=== PATIENT | male | born 1945 | race Hispanic/Latino ===

== ENCOUNTER 2018-09-17 18:45 | Inpatient (IN) | payer MEDICARE ==
[2018-09-17] MEDS ORDERED: Sodium Chloride 0.9% 1,000 ML IV ONE (19:13)
[2018-09-17] MEDS ORDERED: Sodium Chloride 0.9% 500 ML IV ONE (19:13)
--- NOTE | 2018-09-17 19:26 | C.PDOC ---
History Of Present Illness 73 year old male presents after he tripped and fell at home today and was unable to get up. Denies LOC. Chief Complaint (Nursing): Lower Extremity Problem/Injury History Per: Patient History/Exam Limitations: no limitations Onset/Duration Of Symptoms: Hrs Current Symptoms Are (Timing): Still Present Recent travel outside of the [place]: No Past Medical History Reviewed: Historical Data, Nursing Documentation, Vital Signs Vital Signs: Last Vital Signs Temp 99.9 F H 09/17/18 19:16 Pulse 111 H 09/17/18 18:57 Resp 20 09/17/18 18:57 BP 155/77 H 09/17/18 18:57 Pulse Ox 92 L 09/17/18 18:57 Family History: States: Unknown Family Hx - Social History Hx Alcohol Use: No Hx Substance Use: No - Immunization History Hx Tetanus Toxoid Vaccination: No Hx Influenza Vaccination: No Hx Pneumococcal Vaccination: No Review Of Systems Constitutional: Negative for: Fever, Chills Cardiovascular: Negative for: Chest Pain, Palpitations Respiratory: Negative for: Cough, Shortness of Breath Gastrointestinal: Negative for: Nausea, Vomiting Neurological: Negative for: Weakness, Numbness, Other (LOC) Physical Exam - Physical Exam Appears: Non-toxic Skin: Warm, Dry Head: Atraumatic, Normacephalic Eye(s): bilateral: Normal Inspection Nose: Normal Oral Mucosa: Dry Neck: Normal, No Midline Cervical Tenderness, No Paracervical Tenderness, Supple Chest: Symmetrical, No Tenderness Cardiovascular: Rhythm Regular Respiratory: Normal Breath Sounds, No Rales, No Rhonchi, No Wheezing Gastrointestinal/Abdominal: Soft, No Tenderness Back: No CVA Tenderness Extremity: Other (Markedly lower extremities with erythema, warm to touch) Neurological/Psych: Oriented x3, Normal Speech ED Course And Treatment - Laboratory Results Result Diagrams: 09/17/18 19:15 09/17/18 19:15 ECG: Interpreted By Me, Viewed By Me ECG Rhythm: Sinus Rhythm ECG Interpretation: No Acute Changes Interpretation Of ECG: NSR, noacute changes, normal tracings. Rate From EC O2 Sat by Pulse Oximetry: 92 (Room air) Pulse Ox Interpretation: Abnormal Progress Note: EKG, blood work, CT head, and urinalysis ordered. IV fluids and rocephin administered. Disposition Discussed With : Ephraim Avalos Doctor Will See Patient In The: Hospital Counseled Patient/Family Regarding: Diagnosis - Disposition Disposition: HOSPITALIZED Disposition Time: 23:54 Condition: STABLE Forms: [facility] (Z[place]ian) - POA Present On Arrival: None - Clinical Impression Clinical Impression: Syncope, Cellulitis - Scribe Statement The provider has reviewed the documentation as recorded by the Scribe Arpit Castillo All medical record entries made by the Aaronibcayla were at my direction and personally dictated by me. I have reviewed the chart and agree that the record accurately reflects my personal performance of the history, physical exam, medical decision making, and the department course for this patient. I have also personally directed, reviewed, and agree with the discharge instructions and disposition.
[2018-09-17] MEDS ORDERED: cefTRIAXone IV 1 gm in Dextros 50 ML IVPB ONE (19:27)
[2018-09-17 19:48] LABS: BASO % 0.5 % (0.0-2.0); EOS % 0.2 % (0.0-4.0); HEMOGLOBIN 14.8 g/dL (12.0-18.0); LYMPH # 0.9 K/uL (1.0-4.3); LYMPH % 9.9 % (20.0-40.0); MEAN CELL VOLUME 89.9 fL (80.0-94.0); MEAN CORPUSCULAR HEMOGLOBIN 31.5 pg (27.0-31.0); MEAN PLATELET VOLUME 7.1 fL (7.2-11.7); MONO # 0.7 K/uL (0.0-0.8); MONO % 8.3 % (0.0-10.0); NEUT # 7.1 K/uL (1.8-7.0); NEUT % 81.1 % (50.0-75.0); NRBC % 0.1 % (0.0-2.0); PLATELET COUNT 199 K/uL (130-400); RBC 4.69 Mil/uL (4.40-5.90); WHITE BLOOD COUNT 8.8 K/uL (4.8-10.8)
[2018-09-17] MEDS ORDERED: Sodium Chloride 0.9% 1,000 ML ONE (19:51)
[2018-09-17 20:03] LABS: ALB/GLOB RATIO 1.3 (1.0-2.1); ALBUMIN 4.4 g/dL (3.5-5.0); ALT/SGPT 18 U/L (21-72); AST/SGOT 45 U/L (17-59); BLOOD UREA NITROGEN 11 mg/dL (9-20); CALCIUM 8.7 mg/dl (8.6-10.4); GFR NON-AFRICAN AMERICAN > 60
[2018-09-17 20:07] LABS: LYMPHOCYTE 9 % (20-40); MONOCYTE 10 % (0-10); NEUTROPHIL 81 % (50-75); PLATELET ESTIMATE NORMAL (NORMAL); TOTAL CELLS COUNTED 100
[2018-09-17] MEDS ORDERED: Iohexol 300 100 ML IJ ONE (20:48)
[2018-09-17 21:06] LABS: ABG ALLEN TEST YES; ARTERIAL BLOOD GAS HCO3 26.2 mmol/L (21-28); ARTERIAL BLOOD GAS HEMOGLOBIN 13.1 g/dL (11.7-17.4); ARTERIAL BLOOD GAS PCO2 29 mm/Hg (35-45); ARTERIAL BLOOD GAS PH 7.52 (7.35-7.45); ARTERIAL BLOOD GAS PO2 93 mm/Hg (80-100); ARTERIAL BLOOD GAS TCO2 24.6 mmol/L (22-28)
--- NOTE | 2018-09-18 00:56 | CP.PCM.HP ---
<Whitney Bean - Last Filed: 09/18/18 03:00> History of Present Illness - History of Present Illness History of Present Illness: Medicine Admission History and Physical - Night Float CC: s/p fall HPI: 73 y/o male who denies PMHx presents to the ED from EMS s/p fall at home. Patient said he was on the ground for about 12 hours before EMS was called and was sent to the hospital. This morning, he was going to his bedroom, tripped, tried to catch himself by holding a doorknob and fell. His feet hit the ground, but not his head. His right middle finger got bruised during the fall; he used his right hand to hold the doorknob. Patient denied LOC or hitting his head. Patient was on the ground for a long time because his brother at home cannot physically pick him up. While he was on the ground, his brother, who he lives with, brought him food. Since he was on the ground for a long time and cannot get up, he urinated on the floor because he really needed to go. Patient only complains of pain on both feet, but his feet have always been hurting. Patient endorses trouble ambulating because of foot pain. His shins have had chronic discoloration for a long time; patient does not recall for how long. Patient also endorses LBP since he is sedentary opposed to trauma. Denies fever, chills, sweats, nausea, vomiting, diarrhea, abdominal pain. ROS: as per HPI PMHx: denies PSHx: adenoids and tonsil removal childhood FHx: sister with DM SocHx: denies tobacco, EtOH and illicit drugs now and in the past. Lives with brother's family - brother's and kids as well. Limited in ADLs. Brother assists with ADLs. Meds: None. Used to be on "water pill" (HCTZ)? Patient states he stopped it. Unclear why. All: NKDA Present on Admission - Present on Admission Any Indicators Present on Admission: Yes Past Patient History - Past Social History Smoking Status: Never Smoked - ENDOCRINE/METABOLIC Hx Diabetes Mellitus Type 2: Yes - PSYCHIATRIC Hx Substance Use: No Meds Allergies/Adverse Reactions: Allergies Allergy/AdvReac Type Severity Reaction Status Date / Time No Known Allergies Allergy Verified 09/17/18 19:02 Physical Exam - Constitutional Appears: Well - Head Exam Head Exam: ATRAUMATIC, NORMAL INSPECTION, NORMOCEPHALIC - Eye Exam Eye Exam: EOMI, Normal appearance Pupil Exam: NORMAL ACCOMODATION - ENT Exam ENT Exam: Mucous Membranes Dry - Neck Exam Neck exam: Positive for: Normal Inspection. Negative for: Lymphadenopathy, Tenderness - Respiratory Exam Respiratory Exam: Clear to Auscultation Bilateral, NORMAL BREATHING PATTERN - Cardiovascular Exam Cardiovascular Exam: REGULAR RHYTHM - GI/Abdominal Exam GI & Abdominal Exam: Normal Bowel Sounds, Soft - Extremities Exam Extremities exam: Positive for: calf tenderness Additional comments: bilateral: chronic erythematous LE below knees that do not cherelle or change color with gravity. TTP. 2+ pitting edema, desquamation of feet, hallus valgus, severe thickening and yellowing of toenails - Back Exam Back exam: absent: paraspinal tenderness, vertebral tenderness Additional comments: no vertebral cervical, thoracic or lumbar tenderness - Neurological Exam Neurological exam: Alert, Oriented x3 - Psychiatric Exam Psychiatric exam: Normal Affect, Normal Mood - Skin Skin Exam: Dry, Intact, Normal Color, Warm Additional comments: legs were not warm to touch compared to other parts of body Results - Vital Signs Recent Vital Signs: Last Vital Signs Temp 99 F 09/17/18 23:41 Pulse 95 H 09/17/18 23:41 Resp 16 09/17/18 23:41 BP 140/90 09/17/18 23:41 Pulse Ox 92 L 09/17/18 23:57 - Labs Result Diagrams: 09/17/18 19:15 09/17/18 19:15 Labs: Laboratory Results - last 24 hr 09/17/18 09/17/18 09/17/18 19:15 19:15 19:15 WBC 8.8 RBC 4.69 Hgb 14.8 Hct 42.2 MCV 89.9 MCH 31.5 H MCHC 35.0 RDW 13.0 Plt Count 199 MPV 7.1 L Neut % (Auto) 81.1 H Lymph % (Auto) 9.9 L Brule % (Auto) 8.3 Eos % (Auto) 0.2 Baso % (Auto) 0.5 Neut # (Auto) 7.1 H Lymph # (Auto) 0.9 L Brule # (Auto) 0.7 Eos # (Auto) 0.0 Baso # (Auto) 0.0 Neutrophils % (Manual) 81 H Lymphocytes % (Manual) 9 L Monocytes % (Manual) 10 Platelet Estimate Normal D-Dimer, Quantitative 605 H Puncture Site pCO2 pO2 HCO3 ABG pH ABG Total CO2 ABG O2 Saturation ABG Base Excess ABG Hemoglobin ABG Carboxyhemoglobin POC ABG HHb (Measured) ABG Methemoglobin Isaac Test Hgb O2 Saturation Sodium 137 Potassium 4.3 Chloride 100 Carbon Dioxide 26 Anion Gap 16 BUN 11 Creatinine 0.8 Est GFR ( Amer) > 60 Est GFR (Non-Af Amer) > 60 Random Glucose 132 H Lactic Acid Calcium 8.7 Total Bilirubin 1.6 H AST 45 ALT 18 L Alkaline Phosphatase 93 Total Protein 7.8 Albumin 4.4 Globulin 3.4 Albumin/Globulin Ratio 1.3 09/17/18 09/17/18 20:41 20:50 WBC RBC Hgb Hct MCV MCH MCHC RDW Plt Count MPV Neut % (Auto) Lymph % (Auto) Brule % (Auto) Eos % (Auto) Baso % (Auto) Neut # (Auto) Lymph # (Auto) Brule # (Auto) Eos # (Auto) Baso # (Auto) Neutrophils % (Manual) Lymphocytes % (Manual) Monocytes % (Manual) Platelet Estimate D-Dimer, Quantitative Puncture Site Rb pCO2 29 L pO2 93 HCO3 26.2 ABG pH 7.52 H ABG Total CO2 24.6 ABG O2 Saturation 99.0 H ABG Base Excess 1.7 ABG Hemoglobin 13.1 ABG Carboxyhemoglobin 1.8 H POC ABG HHb (Measured) 1.0 ABG Methemoglobin 2.0 Isaac Test Yes Hgb O2 Saturation 95.2 Sodium Potassium Chloride Carbon Dioxide Anion Gap BUN Creatinine Est GFR ( Amer) Est GFR (Non-Af Amer) Random Glucose Lactic Acid 2.3 H Calcium Total Bilirubin AST ALT Alkaline Phosphatase Total Protein Albumin Globulin Albumin/Globulin Ratio Assessment & Plan - Assessment and Plan (Free Text) Assessment: 73 y/o male who denies PMHx presents to the ED from EMS s/p fall at home. s/p fall -likely 2/2 chronic b/l LE weakness, denies hitting head and denies LOC -CT head, CXR, and CTAP formal read pending -CPK pending -UA pending - check for myoglobinuria -PT/OT b/l LE edema and chronic skin changes -likely 2/2 peripheral vascular disease vs. cellulitis -s/p ceftriaxone 1g x 1; will hold off on abs due to no leukocytosis and patient afebrile -venous doppler r/o PE ordered - pending results -ddimer -podiatry consulted, appreciate recs Hx of CHF? -patient w/o other medical documentation from our EMR. Was on "water pills" in the past -monitor for fluid overload via lung exam; patient receiving 100cc/h PPX DVT: heparin 5000u sq GI: not indicated Diet: HHD case d/w Dr. Bailey Bean PGY1 <Ephraim Avalos - Last Filed: 09/18/18 06:51> Results - Vital Signs Recent Vital Signs: Last Vital Signs Temp 98.9 F 09/18/18 05:56 Pulse 89 09/18/18 05:56 Resp 22 09/18/18 05:56 BP 94/58 L 09/18/18 05:56 Pulse Ox 98 09/18/18 05:56 - Labs Result Diagrams: 09/18/18 05:39 09/18/18 05:39 Labs: Laboratory Results - last 24 hr 09/17/18 09/17/18 09/17/18 19:15 19:15 19:15 WBC 8.8 RBC 4.69 Hgb 14.8 Hct 42.2 MCV 89.9 MCH 31.5 H MCHC 35.0 RDW 13.0 Plt Count 199 MPV 7.1 L Neut % (Auto) 81.1 H Lymph % (Auto) 9.9 L Brule % (Auto) 8.3 Eos % (Auto) 0.2 Baso % (Auto) 0.5 Neut # (Auto) 7.1 H Lymph # (Auto) 0.9 L Brule # (Auto) 0.7 Eos # (Auto) 0.0 Baso # (Auto) 0.0 Neutrophils % (Manual) 81 H Lymphocytes % (Manual) 9 L Monocytes % (Manual) 10 Platelet Estimate Normal D-Dimer, Quantitative 605 H Puncture Site pCO2 pO2 HCO3 ABG pH ABG Total CO2 ABG O2 Saturation ABG Base Excess ABG Hemoglobin ABG Carboxyhemoglobin POC ABG HHb (Measured) ABG Methemoglobin Isaac Test VBG pH VBG pCO2 VBG HCO3 VBG Total CO2 VBG O2 Sat (Calc) VBG Base Excess VBG Potassium Hgb O2 Saturation Glucose Lactate Sodium 137 Potassium 4.3 Chloride 100 Carbon Dioxide 26 Anion Gap 16 BUN 11 Creatinine 0.8 Est GFR ( Amer) > 60 Est GFR (Non-Af Amer) > 60 Random Glucose 132 H Lactic Acid Calcium 8.7 Phosphorus Magnesium Total Bilirubin 1.6 H AST 45 ALT 18 L Alkaline Phosphatase 93 Total Protein 7.8 Albumin 4.4 Globulin 3.4 Albumin/Globulin Ratio 1.3 Venous Blood Potassium 09/17/18 09/17/18 09/18/18 20:41 20:50 05:39 WBC 7.3 RBC 4.16 L Hgb 13.2 Hct 38.0 MCV 91.5 MCH 31.7 H MCHC 34.7 RDW 12.8 Plt Count 170 MPV 6.9 L Neut % (Auto) 63.1 Lymph % (Auto) 21.8 Brule % (Auto) 12.6 H Eos % (Auto) 1.9 Baso % (Auto) 0.6 Neut # (Auto) 4.6 Lymph # (Auto) 1.6 Brule # (Auto) 0.9 H Eos # (Auto) 0.1 Baso # (Auto) 0.0 Neutrophils % (Manual) Lymphocytes % (Manual) Monocytes % (Manual) Platelet Estimate D-Dimer, Quantitative Puncture Site Rb pCO2 29 L pO2 93 HCO3 26.2 ABG pH 7.52 H ABG Total CO2 24.6 ABG O2 Saturation 99.0 H ABG Base Excess 1.7 ABG Hemoglobin 13.1 ABG Carboxyhemoglobin 1.8 H POC ABG HHb (Measured) 1.0 ABG Methemoglobin 2.0 Isaac Test Yes VBG pH VBG pCO2 VBG HCO3 VBG Total CO2 VBG O2 Sat (Calc) VBG Base Excess VBG Potassium Hgb O2 Saturation 95.2 Glucose Lactate Sodium Potassium Chloride Carbon Dioxide Anion Gap BUN Creatinine Est GFR ( Amer) Est GFR (Non-Af Amer) Random Glucose Lactic Acid 2.3 H Calcium Phosphorus Magnesium Total Bilirubin AST ALT Alkaline Phosphatase Total Protein Albumin Globulin Albumin/Globulin Ratio Venous Blood Potassium 09/18/18 09/18/18 09/18/18 05:39 05:39 05:40 WBC RBC Hgb Hct MCV MCH MCHC RDW Plt Count MPV Neut % (Auto) Lymph % (Auto) Brule % (Auto) Eos % (Auto) Baso % (Auto) Neut # (Auto) Lymph # (Auto) Brule # (Auto) Eos # (Auto) Baso # (Auto) Neutrophils % (Manual) Lymphocytes % (Manual) Monocytes % (Manual) Platelet Estimate D-Dimer, Quantitative Puncture Site pCO2 pO2 19 L HCO3 ABG pH ABG Total CO2 ABG O2 Saturation ABG Base Excess ABG Hemoglobin ABG Carboxyhemoglobin POC ABG HHb (Measured) ABG Methemoglobin Isaac Test VBG pH 7.39 VBG pCO2 49 VBG HCO3 25.9 VBG Total CO2 31.2 H VBG O2 Sat (Calc) 32.3 L VBG Base Excess 3.7 H VBG Potassium 3.5 L Hgb O2 Saturation Glucose 98 Lactate 1.3 Sodium 134 133.0 Potassium 3.6 Chloride 101 102.0 Carbon Dioxide 27 Anion Gap 10 BUN 11 Creatinine 0.9 Est GFR ( Amer) > 60 Est GFR (Non-Af Amer) > 60 Random Glucose 106 Lactic Acid Calcium 8.1 L Phosphorus 3.2 Magnesium 2.1 Total Bilirubin 2.0 H AST 65 H D ALT 22 Alkaline Phosphatase 80 Total Protein 6.5 Albumin 3.5 D Globulin 3.0 Albumin/Globulin Ratio 1.2 Venous Blood Potassium 3.5 L Assessment & Plan - Date & Time Date: 09/18/18 (I have seen and examined the patient. I agree with findings and plan of care as documented by Dr. Bean. Patient s/p fall. Check CT head. Fall precautions. PT/OT. Also with chronic venous stasis and subsequent skin changes. Consult to podiatry. Rocephin given in ED but no cellulitis noted. Will monitor for fever or leukocytosis. No increase in warmth in lower extremities. Lower extremity dopplers. Monitor for acute changes.) Time: 06:50 Attending/Attestation - Attestation I have personally seen and examined this patient.: Yes I have fully participated in the care of the patient.: Yes I have reviewed all pertinent clinical information: Yes
[2018-09-18 05:41] LABS: BASO % 0.6 % (0.0-2.0); EOS # 0.1 K/uL (0.0-0.7); EOS % 1.9 % (0.0-4.0); HEMOGLOBIN 13.2 g/dL (12.0-18.0); LYMPH # 1.6 K/uL (1.0-4.3); LYMPH % 21.8 % (20.0-40.0); MEAN CELL VOLUME 91.5 fL (80.0-94.0); MEAN CORPUSCULAR HEMOGLOBIN 31.7 pg (27.0-31.0); MEAN CORPUSCULAR HGB CONC 34.7 g/dL (33.0-37.0); MEAN PLATELET VOLUME 6.9 fL (7.2-11.7); MONO # 0.9 K/uL (0.0-0.8); MONO % 12.6 % (0.0-10.0); NEUT # 4.6 K/uL (1.8-7.0); NEUT % 63.1 % (50.0-75.0); RBC 4.16 Mil/uL (4.40-5.90); RED CELL DISTRIBUTION WIDTH 12.8 % (11.5-14.5); WHITE BLOOD COUNT 7.3 K/uL (4.8-10.8)
[2018-09-18 05:44] LABS: VENOUS BLOOD GAS BASE EXCESS 3.7 mmol/L (0.0-2.0); VENOUS BLOOD GAS PCO2 49 mmHg (40-60); VENOUS BLOOD GAS PO2 19 mm/Hg (30-55); VENOUS BLOOD PH 7.39 (7.32-7.43)
[2018-09-18 06:26] LABS: ALB/GLOB RATIO 1.2 (1.0-2.1); ALBUMIN 3.5 g/dL (3.5-5.0); ALT/SGPT 22 U/L (21-72); AST/SGOT 65 U/L (17-59); BLOOD UREA NITROGEN 11 mg/dL (9-20); CALCIUM 8.1 mg/dl (8.6-10.4); GFR NON-AFRICAN AMERICAN > 60
--- NOTE | 2018-09-18 09:35 | CT ---
Date of service: 09/17/2018 PROCEDURE: CT HEAD WITHOUT CONTRAST. HISTORY: seizure COMPARISON: None available. TECHNIQUE: Axial computed tomography images were obtained through the head/brain without intravenous contrast. Radiation dose: Total exam DLP = 1134.78 mGy-cm. This CT exam was performed using one or more of the following dose reduction techniques: Automated exposure control, adjustment of the mA and/or kV according to patient size, and/or use of iterative reconstruction technique. FINDINGS: HEMORRHAGE: No intracranial hemorrhage. BRAIN: Minor chronic periventricular white matter ischemic changes. Moderate generalized volume loss. The vascular calcifications both carotid siphons. With minimal calcification both vertebral arteries. VENTRICLES: No obstructive hydrocephalus. Incidental note made of a cavum septum pellucidum and vergae. CALVARIUM: Unremarkable. PARANASAL SINUSES: Unremarkable as visualized. No significant inflammatory changes. MASTOID AIR CELLS: Unremarkable as visualized. No inflammatory changes. OTHER FINDINGS: None. IMPRESSION: No acute intracranial hemorrhage. Minor chronic periventricular white matter ischemic changes. Moderate generalized volume loss.
--- NOTE | 2018-09-18 11:08 | CT ---
Date of service: 09/17/2018 PROCEDURE: CT Chest with contrast (Pulmonary Angiogram) HISTORY: Elevated the D-Dimer COMPARISON: The no prior study available for comparison however correlation made with chest radiograph dated 09/17/2018. TECHNIQUE: Axial computed tomography images were obtained of the chest in the pulmonary arterial phase of enhancement. Coronal and sagittal reformatted images were created and reviewed. Intravenous contrast dose: Radiation dose: Total exam DLP = 637.71 mGy-cm. This CT exam was performed using one or more of the following dose reduction techniques: Automated exposure control, adjustment of the mA and/or kV according to patient size, and/or use of iterative reconstruction technique. FINDINGS: PULMONARY ARTERIES: Unremarkable. No pulmonary embolism. Pulmonary trunk measures approximately 2.75 cm. AORTA: No acute findings. No thoracic aortic aneurysm. Ascending thoracic aorta measures approximately 3.25 cm and descending thoracic aorta measures approximately 2.5 cm. no aortic atherosclerotic calcification or mural plaque present. The the LUNGS: Mild passive/dependent type atelectasis seen in the right and to a lesser degree left lung bases. PLEURAL SPACES: Unremarkable. No effusion or pneumothorax. HEART: Unremarkable. No cardiomegaly. No significant pericardial effusion. LYMPH NODES: Few small nonspecific mediastinal lymph nodes. No significant hilar adenopathy. Trachea is midline and patent with no large central endoluminal lesions. There is a small hiatal hernia. BONES, CHEST WALL: Mild multilevel degenerative spondylosis of the thoracic spine. OTHER FINDINGS: Liver appears enlarged measuring nearly 19 cm in CC dimension.. 12.6 mm elliptical shaped calculus seen in the right renal pelvis region. IMPRESSION: Unremarkable CT pulmonary angiogram. No pulmonary embolus. Hepatomegaly. Nonobstructing calculus right renal pelvis.
--- NOTE | 2018-09-18 16:27 | RAD ---
Date of service: 09/18/2018 PROCEDURE: Radiographs of the Lumbar Spine. HISTORY: previous fall COMPARISON: No prior FINDINGS: BONES: No evidence of acute compression fractures no retropulsed fragments. Vertebral bodies exhibit normal stature. Vertebral bodies and facets normally aligned. DISC SPACES: Mild moderate multilevel degenerative spondylosis. Changes most notably affect the L5-S1 level with disc space narrowing, endplate eburnation with anterolateral as well as smaller posterior osteophyte formation and hypertrophic facet joint changes.. Similar but less severe changes seen at the remaining levels. OTHER FINDINGS: None. IMPRESSION: No acute fractures. Mild to moderate multilevel degenerative spondylosis most notably affecting the L5-S1 level.
--- NOTE | 2018-09-18 16:28 | RAD ---
PROCEDURE: Radiographs of the pelvis and bilateral hips HISTORY: prior hx of fall COMPARISON: None. FINDINGS: BONES: Pelvis: Unremarkable. Right hip:Unremarkable. Left hip:Unremarkable. JOINTS: Right hip: Unremarkable. Left hip: Unremarkable. Sacroiliac Joints: Unremarkable. Pubic symphysis: Unremarkable. SOFT TISSUES: Normal. OTHER FINDINGS: Mild degenerative spondylosis lumbosacral spine IMPRESSION: No evidence of acute displaced fracture nor dislocation
--- NOTE | 2018-09-18 17:26 | RAD ---
Date of service: 09/17/2018 HISTORY: Seizure COMPARISON: Comparison made with CTA chest dated 09/17/2017. FINDINGS: LUNGS: Minor bibasilar atelectasis PLEURA: No significant pleural effusion identified, no pneumothorax apparent. CARDIOVASCULAR: No aortic atherosclerotic calcification present.. Normal cardiac size. No pulmonary vascular congestion. OSSEOUS STRUCTURES: No significant abnormalities. VISUALIZED UPPER ABDOMEN: Normal. OTHER FINDINGS: None. IMPRESSION: Minor bibasilar atelectasis.
[2018-09-18 21:24] LABS: URINE BILIRUBIN NEGATIVE (NEGATIVE); URINE BLOOD 2+ (NEGATIVE); URINE CLARITY Clear (Clear); URINE COLOR Yellow (YELLOW); URINE GLUCOSE (UA) NORMAL (Normal); URINE LEUKOCYTE ESTERASE NEG Leu/uL (Negative); URINE PROTEIN NEGATIVE (NEGATIVE)
[2018-09-19 08:50] LABS: BASO % 0.8 % (0.0-2.0); EOS # 0.2 K/uL (0.0-0.7); EOS % 3.7 % (0.0-4.0); HEMOGLOBIN 13.7 g/dL (12.0-18.0); LYMPH # 1.3 K/uL (1.0-4.3); LYMPH % 21.7 % (20.0-40.0); MEAN CELL VOLUME 92.2 fL (80.0-94.0); MEAN CORPUSCULAR HEMOGLOBIN 31.8 pg (27.0-31.0); MEAN CORPUSCULAR HGB CONC 34.5 g/dL (33.0-37.0); MEAN PLATELET VOLUME 7.4 fL (7.2-11.7); MONO # 0.7 K/uL (0.0-0.8); MONO % 10.9 % (0.0-10.0); NEUT # 3.8 K/uL (1.8-7.0); NEUT % 62.9 % (50.0-75.0); RBC 4.29 Mil/uL (4.40-5.90); RED CELL DISTRIBUTION WIDTH 13.1 % (11.5-14.5)
[2018-09-19 09:16] LABS: ALB/GLOB RATIO 1.1 (1.0-2.1); ALBUMIN 3.4 g/dL (3.5-5.0); ALT/SGPT 23 U/L (21-72); AST/SGOT 56 U/L (17-59); BLOOD UREA NITROGEN 15 mg/dL (9-20); CALCIUM 7.8 mg/dl (8.6-10.4); GFR NON-AFRICAN AMERICAN > 60
[2018-09-19 10:22] LABS: FOLATE 10.2 ng/mL
--- NOTE | 2018-09-19 17:03 | CP.PCM.PN ---
Subjective - Date & Time of Evaluation Date of Evaluation: 09/19/18 Time of Evaluation: 12:00 - Subjective Subjective: PGY-1 Medicine Progress Note for Dr. Lopez's service Patient s/e at bedside. Offers 0 complaints. Denies fevers, chills, chest pain, sob, n/v, constipation or diarrhea, dysuria, and fecal incontinence. Objective - Vital Signs/Intake and Output Vital Signs (last 24 hours): Temp Pulse Resp BP Pulse Ox 97.9 F 77 20 104/61 93 L 09/19/18 15:00 09/19/18 15:00 09/19/18 15:00 09/19/18 15:00 09/19/18 15:00 Intake and Output: 09/19/18 09/19/18 06:59 18:59 Output Total 200 Balance -200 - Medications Medications: Current Medications Heparin Sodium (Porcine) (Heparin) 5,000 units SC Q12 [id number] Last Admin: 09/19/18 10:57 Dose: 5,000 units - Labs Labs: 09/19/18 08:42 09/19/18 08:42 - Constitutional Appears: Non-toxic, No Acute Distress - Head Exam Head Exam: NORMAL INSPECTION, NORMOCEPHALIC - Eye Exam Eye Exam: EOMI, Normal appearance. absent: Nystagmus, Scleral icterus - ENT Exam ENT Exam: Mucous Membranes Dry - Respiratory Exam Respiratory Exam: Clear to Ausculation Bilateral, NORMAL BREATHING PATTERN. absent: Rales, Rhonchi, Wheezes - Cardiovascular Exam Cardiovascular Exam: REGULAR RHYTHM, +S1, +S2 - GI/Abdominal Exam GI & Abdominal Exam: Soft, Normal Bowel Sounds. absent: Distended, Firm, Guarding, Tenderness - Extremities Exam Extremities Exam: Pedal Edema. absent: Calf Tenderness, Normal Inspection Additional comments: abnormal discoloration of b/l LE with dark pink color from below knee to above malleolus swelling noted in the same region mentioned above - Back Exam Back Exam: NORMAL INSPECTION - Neurological Exam Neurological Exam: Alert, Awake, Oriented x3 - Psychiatric Exam Psychiatric exam: Normal Affect, Normal Mood - Skin Skin Exam: Dry, Intact, Normal Color Assessment and Plan - Assessment and Plan (Free Text) Assessment: Patient is a 73 yo male w/ no known PMH admitted for fall at home. EDWIN negative. Unlikely infectious etiology in setting of afebrile and no leukocytosis. Multiple xrays were done which showed no fractures. Pending Echo and PT eval B/L leg edema with chronic skin changes Podiatry Consulted: Dr. Ita montenegro appreciated EDWIN negative, Infectious etiology unlikely in setting of no fever, leukocytosis Pending PT eval, Pending Echo venous stasis vs CHF; unknown etiology CT chest negative for PE D-Dimer elevated S/P Fall Hip/Lumbar xray negative for acute fractures GI ppx: not indicated DVT ppx: Hep 5000 units sc q8h, SCDs not tolerable PGY-1 Elysia Romo Medical Management discussed with Dr. Lopez
--- NOTE | 2018-09-19 18:28 | CP.PCM.CON ---
History of Present Illness - History of Present Illness History of Present Illness: Podiatry Consult Note for Dr. Vazquez: 73 year old male patient, who denies PMHx, seen and evaluated for b/l skin changes, admitted for fall. He states that his legs have looked wrinkled for a very long time and his primary care doctor told him to "keep an eye on them". He denies any weeping or drainage from his legs and states that they do not cause him any pain. He denies any other acute pedal complaints. Denies N/V/F/SOB/CP. PMHx: Denies ALL: NKDA Review of Systems - Constitutional Constitutional: As Per HPI Past Patient History - Past Medical History & Family History Past Medical History?: No - Past Social History Smoking Status: Unknown If Ever Smoked - ENDOCRINE/METABOLIC Hx Diabetes Mellitus Type 2: Yes - MUSCULOSKELETAL/RHEUMATOLOGICAL Hx Falls: Yes - PSYCHIATRIC Hx Substance Use: No - SURGICAL HISTORY Hx Tonsillectomy: Yes - ANESTHESIA Hx Anesthesia: No Hx Anesthesia Reactions: No Hx Malignant Hyperthermia: No Has any member of the family had a problem w/ anesthesia?: No Meds Allergies/Adverse Reactions: Allergies Allergy/AdvReac Type Severity Reaction Status Date / Time No Known Allergies Allergy Verified 09/17/18 19:02 - Medications Medications: Current Medications Heparin Sodium (Porcine) (Heparin) 5,000 units SC Q12 VENKATESH Last Admin: 09/19/18 10:57 Dose: 5,000 units Physical Exam - Constitutional Appears: Non-toxic, No Acute Distress - Extremities Exam Additional comments: Vascular: DP/PT 1/4, CFT < 3 seconds, TG warm to warm, no edema appreciated Ortho: No pain with palpation of b/l legs, MMT 4/5, no pain with calf compression. Hallux valgus deformity noted b/l with hammertoe deformity 2-5 bilaterally. Neuro: Gross and protective sensation intact Derm: Skin changes noted circumfrentially to b/l legs. Hyperpigmentation noted beginning at tibial tuberosity and extending down to ankle joint. No evidence of cellulitis, no open lesions, no clinical signs of infection. - Neurological Exam Neurological exam: Alert, Oriented x3 - Psychiatric Exam Psychiatric exam: Normal Affect, Normal Mood Results - Vital Signs Recent Vital Signs: Last Vital Signs Temp 97.9 F 09/19/18 15:00 Pulse 77 09/19/18 15:00 Resp 20 09/19/18 15:00 BP 104/61 09/19/18 15:00 Pulse Ox 93 L 09/19/18 15:00 - Labs Result Diagrams: 09/20/18 08:01 09/20/18 08:01 Labs: Laboratory Results - last 24 hr 09/18/18 09/18/18 09/18/18 16:51 20:10 21:09 WBC RBC Hgb Hct MCV MCH MCHC RDW Plt Count MPV Neut % (Auto) Lymph % (Auto) [place] % (Auto) Eos % (Auto) Baso % (Auto) Neut # (Auto) Lymph # (Auto) [place] # (Auto) Eos # (Auto) Baso # (Auto) Sodium Potassium Chloride Carbon Dioxide Anion Gap BUN Creatinine Est GFR ( Amer) Est GFR (Non-Af Amer) POC Glucose (mg/dL) 99 126 H Random Glucose Calcium Phosphorus Magnesium Total Bilirubin AST ALT Alkaline Phosphatase Total Creatine Kinase Total Protein Albumin Globulin Albumin/Globulin Ratio Vitamin B12 Folate Free T4 TSH 3rd Generation Urine Color Yellow Urine Clarity Clear Urine pH 6.0 Ur Specific [place] 1.015 Urine Protein Negative Urine Glucose (UA) Normal Urine Ketones Trace Urine Blood 2+ H Urine Nitrate Negative Urine Bilirubin Negative Urine Urobilinogen 2.0 Ur Leukocyte Esterase Neg Urine WBC (Auto) < 1 Urine RBC (Auto) 14 H RPR 09/19/18 09/19/18 09/19/18 06:13 08:42 08:42 WBC 6.0 RBC 4.29 L Hgb 13.7 Hct 39.6 MCV 92.2 MCH 31.8 H MCHC 34.5 RDW 13.1 Plt Count 174 MPV 7.4 Neut % (Auto) 62.9 Lymph % (Auto) 21.7 [place] % (Auto) 10.9 H Eos % (Auto) 3.7 Baso % (Auto) 0.8 Neut # (Auto) 3.8 Lymph # (Auto) 1.3 [place] # (Auto) 0.7 Eos # (Auto) 0.2 Baso # (Auto) 0.0 Sodium 136 Potassium 3.6 Chloride 104 Carbon Dioxide 26 Anion Gap 10 BUN 15 Creatinine 0.9 Est GFR ( Amer) > 60 Est GFR (Non-Af Amer) > 60 POC Glucose (mg/dL) 106 Random Glucose 99 Calcium 7.8 L Phosphorus 3.4 Magnesium 2.1 Total Bilirubin 1.3 AST 56 ALT 23 Alkaline Phosphatase 77 Total Creatine Kinase Total Protein 6.5 Albumin 3.4 L Globulin 3.1 Albumin/Globulin Ratio 1.1 Vitamin B12 195 L Folate 10.2 Free T4 TSH 3rd Generation 4.38 Urine Color Urine Clarity Urine pH Ur Specific [place] Urine Protein Urine Glucose (UA) Urine Ketones Urine Blood Urine Nitrate Urine Bilirubin Urine Urobilinogen Ur Leukocyte Esterase Urine WBC (Auto) Urine RBC (Auto) RPR 09/19/18 09/19/18 09/19/18 08:42 08:42 08:42 WBC RBC Hgb Hct MCV MCH MCHC RDW Plt Count MPV Neut % (Auto) Lymph % (Auto) [place] % (Auto) Eos % (Auto) Baso % (Auto) Neut # (Auto) Lymph # (Auto) [place] # (Auto) Eos # (Auto) Baso # (Auto) Sodium Potassium Chloride Carbon Dioxide Anion Gap BUN Creatinine Est GFR ( Amer) Est GFR (Non-Af Amer) POC Glucose (mg/dL) Random Glucose Calcium Phosphorus Magnesium Total Bilirubin AST ALT Alkaline Phosphatase Total Creatine Kinase 685 H Total Protein Albumin Globulin Albumin/Globulin Ratio Vitamin B12 Folate Free T4 1.14 TSH 3rd Generation Urine Color Urine Clarity Urine pH Ur Specific [place] Urine Protein Urine Glucose (UA) Urine Ketones Urine Blood Urine Nitrate Urine Bilirubin Urine Urobilinogen Ur Leukocyte Esterase Urine WBC (Auto) Urine RBC (Auto) RPR Nonreactive 09/19/18 09/19/18 11:40 16:56 WBC RBC Hgb Hct MCV MCH MCHC RDW Plt Count MPV Neut % (Auto) Lymph % (Auto) [place] % (Auto) Eos % (Auto) Baso % (Auto) Neut # (Auto) Lymph # (Auto) [place] # (Auto) Eos # (Auto) Baso # (Auto) Sodium Potassium Chloride Carbon Dioxide Anion Gap BUN Creatinine Est GFR ( Amer) Est GFR (Non-Af Amer) POC Glucose (mg/dL) 95 102 Random Glucose Calcium Phosphorus Magnesium Total Bilirubin AST ALT Alkaline Phosphatase Total Creatine Kinase Total Protein Albumin Globulin Albumin/Globulin Ratio Vitamin B12 Folate Free T4 TSH 3rd Generation Urine Color Urine Clarity Urine pH Ur Specific [place] Urine Protein Urine Glucose (UA) Urine Ketones Urine Blood Urine Nitrate Urine Bilirubin Urine Urobilinogen Ur Leukocyte Esterase Urine WBC (Auto) Urine RBC (Auto) RPR Assessment & Plan - Assessment and Plan (Free Text) Assessment: 73 year old male patient, who denies PMHx, seen and evaluated for b/l skin changes, admitted for fall. Plan: Patient seen and evaluated Discussed patient in detail with Dr. Vazquez Chart, labs, vitals reviewed; VSS, absent leukocytosis Ammonium lactate ordered; to be applied daily to b/l legs Podiatry to sign off at this time, please reconsult as needed Thank you for the consult and allowing us to partake in the care of this patient - Date & Time Date: 09/19/18 Time: 18:27
--- NOTE | 2018-09-20 07:46 | CP.PCM.PN ---
Subjective - Date & Time of Evaluation Date of Evaluation: 09/20/18 Time of Evaluation: 08:16 - Subjective Subjective: PGY-[address] Catherine Schmidt Patient seen and examined at bedside. No acute events overnight. Per PT note today, patient ambultaed 20 ft with RW - recommend ARNULFO. Awaiting echo. Podiatry on consult for bilateral lower extremity edema/skin changes - gave med recs and signed off case. Patient denies chest pain, headache, n/v/d/c, dizziness. Objective - Vital Signs/Intake and Output Vital Signs (last 24 hours): Temp Pulse Resp BP Pulse Ox 97.8 F 72 20 124/74 97 09/19/18 23:35 09/19/18 23:35 09/19/18 23:35 09/19/18 23:35 09/19/18 23:35 Intake and Output: 09/20/18 09/20/18 06:59 18:59 Intake Total 350 Output Total 900 Balance -550 - Medications Medications: Current Medications Heparin Sodium (Porcine) (Heparin) 5,000 units SC Q12 VENKATES[facility] Last Admin: 09/19/18 21:21 Dose: 5,000 units - Labs Labs: 09/19/18 08:42 09/19/18 08:42 - Constitutional Appears: Non-toxic, No Acute Distress - Head Exam Head Exam: ATRAUMATIC, NORMOCEPHALIC - Eye Exam Eye Exam: EOMI - ENT Exam ENT Exam: Mucous Membranes Moist - Respiratory Exam Respiratory Exam: Clear to Ausculation Bilateral, NORMAL BREATHING PATTERN. absent: Rhonchi, Wheezes - Cardiovascular Exam Cardiovascular Exam: REGULAR RHYTHM, +S1, +S2 - GI/Abdominal Exam GI & Abdominal Exam: Soft, Normal Bowel Sounds. absent: Tenderness - Extremities Exam Extremities Exam: Pedal Edema Additional comments: abnormal discoloration of b/l LE with dark pink color from below knee to above malleolus swelling noted in the same region mentioned above - Neurological Exam Neurological Exam: Alert, Awake, Oriented x3 - Psychiatric Exam Psychiatric exam: Normal Affect, Normal Mood - Skin Skin Exam: Dry, Intact Assessment and Plan - Assessment and Plan (Free Text) Assessment: Patient is a 73 yo male w/ no known PMH admitted for fall at home. EDWIN negative. Unlikely infectious etiology in setting of afebrile and no leukocytosis. Multiple x-rays were done which showed no fractures. Pending Echo. PT rec ARNULFO. Patient is a possible discharge tomorrow pending placement. B/L leg edema with chronic skin changes -Podiatry Consulted: Dr. Vazquez- lan appreciated --daily lac-hydrin applied topically to legs bilaterally. Podiatry signed off case. -EDWIN negative, Infectious etiology unlikely in setting of no fever, leukocytosis -PT - ambulated 20 ft w/ RW. Rec d/c to [facility]FO. -venous stasis vs CHF; unknown etiology -B/l LE dopplers 09/18 - Right: No evidence of deep or superficial vein thrombosis in those veins visualized of the right lower extremity. Normal valve function noted of the right side. Left: No evidence of deep or superficial vein thrombosis in those veins visualized of the left lower extremity. Normal valve function noted of the left side. S/P Fall -Hip/Lumbar xray 09/18 - negative for acute fractures -CT head 09/18 - No acute intracranial hemorrhage. Minor chronic periventricular white matter ischemic changes. Moderate generalized volume loss. -CT angio chest 09/18 - Unremarkable CT pulmonary angiogram. No pulmonary embolus. Hepatomegaly. Nonobstructing calculus right renal pelvis. -Mildly elevated CK (685) --Monitor renal function Ppx: -GI ppx: not indicated -DVT ppx: Hep 5000 units sc q8h, SCDs not tolerable Medical Management discussed with Dr. Catherine Stearns, PGY-1 Dispo: Podiatry saw patient - bilateral venous stasis changes, prescribed lac- hydrin lotion. PT rec'd ARNULFO. Spoke with case mgr Tamera regarding ARNULFO placement, will f/u for possible discharge tomorrow or once ARNULFO becomes available.
[2018-09-20 08:06] LABS: BASO % 0.6 % (0.0-2.0); EOS # 0.2 K/uL (0.0-0.7); EOS % 4.3 % (0.0-4.0); HEMOGLOBIN 14.1 g/dL (12.0-18.0); LYMPH % 18.3 % (20.0-40.0); MEAN CELL VOLUME 91.5 fL (80.0-94.0); MEAN CORPUSCULAR HEMOGLOBIN 31.8 pg (27.0-31.0); MEAN CORPUSCULAR HGB CONC 34.7 g/dL (33.0-37.0); MEAN PLATELET VOLUME 7.3 fL (7.2-11.7); MONO # 0.6 K/uL (0.0-0.8); MONO % 10.4 % (0.0-10.0); NEUT # 3.6 K/uL (1.8-7.0); NEUT % 66.4 % (50.0-75.0); RBC 4.44 Mil/uL (4.40-5.90); RED CELL DISTRIBUTION WIDTH 12.7 % (11.5-14.5); WHITE BLOOD COUNT 5.4 K/uL (4.8-10.8)
[2018-09-20 08:20] LABS: ALB/GLOB RATIO 1.1 (1.0-2.1); ALBUMIN 3.7 g/dL (3.5-5.0); ALT/SGPT 27 U/L (21-72); AST/SGOT 49 U/L (17-59); BLOOD UREA NITROGEN 17 mg/dL (9-20); CALCIUM 7.9 mg/dl (8.6-10.4); GFR NON-AFRICAN AMERICAN > 60
--- NOTE | 2018-09-20 11:39 | VASCLAB ---
Date of service: 09/18/2018 PROCEDURE: Lower Extremity Venous Duplex Exam. HISTORY: r/o DVT PRIORS: None. TECHNIQUE: Bilateral common femoral, femoral, popliteal and posterior tibial, peroneal and great saphenous veins were evaluated. Flow was assessed with color Doppler, compressibility, assessment of phasic flow and augmentation response. Report prepared by Mary Tello S FINDINGS: RIGHT: 1. Common Femoral Vein: 1.1. Compressibility - Fully compressible: Thrombus - None : Flow - Phasic: Augmentation -Normal: Reflux - None. 2. Femoral Vein: 2.1. Compressibility - Fully compressible: Thrombus - None : Flow - Phasic: Augmentation -Normal: Reflux - None. 3. Popliteal Vein: 3.1. Compressibility - Fully compressible: Thrombus - None : Flow - Phasic: Augmentation -Normal: Reflux - None. 4. Posterior Tibial Vein: 4.1. Compressibility - N/A: Thrombus - N/A: Flow - N/A: Augmentation -N/A: Reflux - N/A. 5. Peroneal Vein: 5.1. Compressibility - N/A: Thrombus - N/A: Flow - N/A: Augmentation -N/A: Reflux - N/A. 6. Great Saphenous Vein: 6.1. Compressibility - Fully compressible: Thrombus - None: Flow - Phasic: Augmentation - Normal: Reflux - None. LEFT: 1. Common Femoral Vein: 1.1. Compressibility - Fully compressible: Thrombus - None: Flow - Phasic: Augmentation -Normal: Reflux - None. 2. Femoral Vein: 2.1. Compressibility - Fully compressible: Thrombus - None: Flow - Phasic: Augmentation -Normal: Reflux - None. 3. Popliteal Vein: 3.1. Compressibility - Fully compressible: Thrombus - None : Flow - Phasic: Augmentation -Normal: Reflux - None. 4. Posterior Tibial Vein: 4.1. Compressibility - N/A: Thrombus - N/A: Flow - N/A: Augmentation -N/A: Reflux - N/A. 5. Peroneal Vein: 5.1. Compressibility - N/A: Thrombus - N/A: Flow - N/A: Augmentation -N/A: Reflux - N/A. 6. Great Saphenous Vein: 6.1. Compressibility - Fully compressible: Thrombus - None: Flow - Phasic: Augmentation - Normal: Reflux - None. OTHER FINDINGS: Right: The posterior tibial and peroneal veins were not clearly visualized due to edema. Left: The posterior tibial and peroneal veins were not clearly visualized due to edema. IMPRESSION: Right: No evidence of deep or superficial vein thrombosis in those veins visualized of the right lower extremity. Normal valve function noted of the right side. Left: No evidence of deep or superficial vein thrombosis in those veins visualized of the left lower extremity. Normal valve function noted of the left side.
[2018-09-20] MEDS: Ammonium Lactate 12% Lotion (225 g) EXT SCH (16:29)
--- NOTE | 2018-09-20 17:18 | RAD ---
PROCEDURE: Right Hand Radiographs. HISTORY: Right Middle Finger Bruising S/P Fall/. R/O Fractu COMPARISON: None. FINDINGS: BONES: No acute fracture. JOINTS: Erosive changes involving the distal interphalangeal joints. SOFT TISSUES: Normal. OTHER FINDINGS: None. IMPRESSION: No demonstrated fracture or dislocation. Diffuse distal interphalangeal joint arthritic changes.
--- NOTE | 2018-09-20 20:12 | CARD ---
APPROVED REPORT Date of service: 09/20/2018 EXAM: Two-dimensional and M-mode echocardiogram with Doppler and color Doppler. INDICATION Syncope 2D DIMENSIONS IVSd0.7 (0.7-1.1cm)LVDd3.9 (3.9-5.9cm) PWd1.0 (0.7-1.1cm)LA Icdhsp54 (18-58mL) LVDs2.5 (2.5-4.0cm)FS (%) 35.9 % LVEF (%)66.2 (>50%)LVEF (Rocha's)67.02 % M-Mode DIMENSIONS Left Atrium (MM)2.73 (2.5-4.0cm)IVSd0.80 (0.7-1.1cm) Aortic Root3.33 (2.2-3.7cm)LVDd5.71 (4.0-5.6cm) Aortic Cusp Exc.2.12 (1.5-2.0cm)PWd0.90 (0.7-1.1cm) FS (%) 47 %LVDs3.01 (2.0-3.8cm) LVEF (%)78 (>50%) Mitral Valve MV E Ilptdsfr87.4cm/sMV A Xlnozxwx94.3cm/sE/A ratio0.8 TDI Lateral E' Peak V7.32cm/sMedial E' Peak V6.16cm/sE/Lateral E'9.1 E/Medial E'10.8 Tricuspid Valve TR Peak [id number]/sTR Peak Gr.[id number] LEFT VENTRICLE The left ventricle is normal size. There is normal left ventricular wall thickness. Left ventricle systolic function is normal. The Ejection Fraction is 65-70%. There is normal LV segmental wall motion. Transmitral Doppler flow pattern is Grade I-abnormal relaxation pattern. There is no ventricular septal defect visualized. RIGHT VENTRICLE The right ventricle is normal size. The right ventricular systolic function is normal. ATRIA The left atrium is mildly dilated. The right atrium size is normal. AORTIC VALVE The aortic valve is mildly sclerotic. The aortic valve is tri-cuspid. No aortic regurgitation is present. There is no aortic valvular stenosis. MITRAL VALVE Mitral annular calcification is mild. There is no evidence of mitral valve prolapse. There is no mitral valve stenosis. TRICUSPID VALVE The tricuspid valve is normal in structure. There is trace tricuspid regurgitation. Right ventricular systolic pressure is estimated at 30-40 mmHg. There is mild pulmonary hypertension. PULMONIC VALVE The pulmonic valve is not well visualized. There is no pulmonic valvular regurgitation. GREAT VESSELS The aortic root is normal in size. The ascending aorta is normal in size. The IVC was not visualized. PERICARDIAL EFFUSION There is no pericardial effusion. <Conclusion> Left ventricle systolic function is normal. The Ejection Fraction is 65-70%. Transmitral Doppler flow pattern is Grade I-abnormal relaxation pattern. There is mild pulmonary hypertension.
[2018-09-21 08:25] LABS: HEMOGLOBIN 13.8 g/dL (12.0-18.0); MEAN CORPUSCULAR HEMOGLOBIN 31.6 pg (27.0-31.0); MEAN CORPUSCULAR HGB CONC 34.4 g/dL (33.0-37.0); MEAN PLATELET VOLUME 7.5 fL (7.2-11.7); RBC 4.37 Mil/uL (4.40-5.90); RED CELL DISTRIBUTION WIDTH 12.9 % (11.5-14.5); WHITE BLOOD COUNT 4.3 K/uL (4.8-10.8)
[2018-09-21 08:32] LABS: ALB/GLOB RATIO 1.2 (1.0-2.1); ALBUMIN 3.6 g/dL (3.5-5.0); ALT/SGPT 32 U/L (21-72); AST/SGOT 49 U/L (17-59); BLOOD UREA NITROGEN 18 mg/dL (9-20); CALCIUM 7.9 mg/dl (8.6-10.4); GFR NON-AFRICAN AMERICAN > 60
[2018-09-21] MEDS: Ammonium Lactate 12% Lotion (225 g) EXT SCH (11:57)
--- NOTE | 2018-09-21 13:31 | CP.PCM.DIS ---
Provider - Provider Date of Admission: 09/17/18 23:57 Attending physician: Aldo Schmidt MD Consults: 09/18/18 02:54 Podiatry Consult Routine Comment: Consulting Provider: Leon Vazquez Consulting Physician: Leon Vazquez Reason for Consult: chronic skin changes LE/feet b/l 09/20/18 15:26 Wound Care [Nursing Referral for Wound Care] Routine Comment: Physician Instructions: Reason For Exam: sacral redness,small skin opening 09/20/18 15:32 Wound Care [Nursing Referral for Wound Care] Routine Comment: Physician Instructions: Reason For Exam: sacral redness Time Spent in preparation of Discharge (in minutes): 45 Hospital Course - Lab Results Lab Results: Micro Results 09/19/18 01:00 Stool Stool Culture - Final NO SALMONELLA, SHIGELLA OR CAMPYLOBACTER ISOLATED. 09/17/18 19:10 Blood Blood Culture - Preliminary NO GROWTH AFTER 3 DAYS 09/17/18 19:15 Blood Blood Culture - Preliminary NO GROWTH AFTER 3 DAYS 09/19/18 01:00 Stool Ova and Parasite Concentrate Exam - Final 09/18/18 20:10 Urine Random Urine Culture - Final No Growth (<1,000 CFU/ML) Most Recent Lab Values WBC 4.3 K/uL (4.8-10.8) L 09/21/18 08:09 RBC 4.37 Mil/uL (4.40-5.90) L 09/21/18 08:09 Hgb 13.8 g/dL (12.0-18.0) 09/21/18 08:09 Hct 40.2 % (35.0-51.0) 09/21/18 08:09 MCV 92.0 fL (80.0-94.0) 09/21/18 08:09 MCH 31.6 pg (27.0-31.0) H 09/21/18 08:09 MCHC 34.4 g/dL (33.0-37.0) 09/21/18 08:09 RDW 12.9 % (11.5-14.5) 09/21/18 08:09 Plt Count 171 K/uL (130-400) 09/21/18 08:09 MPV 7.5 fL (7.2-11.7) 09/21/18 08:09 Neut % (Auto) 66.4 % (50.0-75.0) 09/20/18 08:01 Lymph % (Auto) 18.3 % (20.0-40.0) L 09/20/18 08:01 Foard % (Auto) 10.4 % (0.0-10.0) H 09/20/18 08:01 Eos % (Auto) 4.3 % (0.0-4.0) H 09/20/18 08:01 Baso % (Auto) 0.6 % (0.0-2.0) 09/20/18 08:01 Neut # (Auto) 3.6 K/uL (1.8-7.0) 09/20/18 08:01 Lymph # (Auto) 1.0 K/uL (1.0-4.3) 09/20/18 08:01 Foard # (Auto) 0.6 K/uL (0.0-0.8) 09/20/18 08:01 Eos # (Auto) 0.2 K/uL (0.0-0.7) 09/20/18 08:01 Baso # (Auto) 0.0 K/uL (0.0-0.2) 09/20/18 08:01 Neutrophils % (Manual) 81 % (50-75) H 09/17/18 19:15 Lymphocytes % (Manual) 9 % (20-40) L 09/17/18 19:15 Monocytes % (Manual) 10 % (0-10) 09/17/18 19:15 Platelet Estimate Normal (NORMAL) 09/17/18 19:15 D-Dimer, Quantitative 605 ng/mlDDU (0-243) H 09/17/18 19:15 Puncture Site Rb 09/17/18 20:50 pCO2 29 mm/Hg (35-45) L 09/17/18 20:50 pO2 19 mm/Hg (30-55) L 09/18/18 05:40 HCO3 26.2 mmol/L (21-28) 09/17/18 20:50 ABG pH 7.52 (7.35-7.45) H 09/17/18 20:50 ABG Total CO2 24.6 mmol/L (22-28) 09/17/18 20:50 ABG O2 Saturation 99.0 % (95-98) H 09/17/18 20:50 ABG Base Excess 1.7 mmol/L (-2.0-3.0) 09/17/18 20:50 ABG Hemoglobin 13.1 g/dL (11.7-17.4) 09/17/18 20:50 ABG Carboxyhemoglobin 1.8 % (0.5-1.5) H 09/17/18 20:50 POC ABG HHb (Measured) 1.0 % (0.0-5.0) 09/17/18 20:50 ABG Methemoglobin 2.0 % (0.0-3.0) 09/17/18 20:50 Isaac Test Yes 09/17/18 20:50 VBG pH 7.39 (7.32-7.43) 09/18/18 05:40 VBG pCO2 49 mmHg (40-60) 09/18/18 05:40 VBG HCO3 25.9 mmol/L 09/18/18 05:40 VBG Total CO2 31.2 mmol/L (22-28) H 09/18/18 05:40 VBG O2 Sat (Calc) 32.3 % (40-65) L 09/18/18 05:40 VBG Base Excess 3.7 mmol/L (0.0-2.0) H 09/18/18 05:40 VBG Potassium 3.5 mmol/L (3.6-5.2) L 09/18/18 05:40 Hgb O2 Saturation 95.2 % (95.0-98.0) 09/17/18 20:50 Sodium 133.0 mmol/l (132-148) 09/18/18 05:40 Chloride 102.0 mmol/L (98-107) 09/18/18 05:40 Glucose 98 mg/dl (75-110) 09/18/18 05:40 Lactate 1.3 mmol/L (0.7-2.1) 09/18/18 05:40 Sodium 133 mmol/L (132-148) 09/21/18 08:09 Potassium 4.0 mmol/L (3.6-5.2) 09/21/18 08:09 Chloride 101 mmol/L (98-107) 09/21/18 08:09 Carbon Dioxide 25 mmol/L (22-30) 09/21/18 08:09 Anion Gap 11 (10-20) 09/21/18 08:09 BUN 18 mg/dL (9-20) 09/21/18 08:09 Creatinine 0.9 mg/dL (0.8-1.5) 09/21/18 08:09 Est GFR ( Amer) > 60 09/21/18 08:09 Est GFR (Non-Af Amer) > 60 09/21/18 08:09 POC Glucose (mg/dL) 100 mg/dL (65-110) 09/21/18 05:15 Random Glucose 99 mg/dL (75-110) 09/21/18 08:09 Lactic Acid 2.3 mmol/L (0.7-2.1) H 09/17/18 20:41 Calcium 7.9 mg/dl (8.6-10.4) L 09/21/18 08:09 Phosphorus 3.8 mg/dL (2.5-4.5) 09/21/18 08:09 Magnesium 2.0 mg/dL (1.6-2.3) 09/21/18 08:09 Total Bilirubin 0.8 mg/dL (0.2-1.3) 09/21/18 08:09 AST 49 U/L (17-59) 09/21/18 08:09 ALT 32 U/L (21-72) 09/21/18 08:09 Alkaline Phosphatase 69 U/L (38-126) 09/21/18 08:09 Total Creatine Kinase 252 U/L (55-170) H 09/21/18 08:09 Total Protein 6.6 g/dL (6.3-8.3) 09/21/18 08:09 Albumin 3.6 g/dL (3.5-5.0) 09/21/18 08:09 Globulin 3.0 gm/dL (2.2-3.9) 09/21/18 08:09 Albumin/Globulin Ratio 1.2 (1.0-2.1) 09/21/18 08:09 Vitamin B12 195 pg/mL (239-931) L 09/19/18 08:42 Folate 10.2 ng/mL 09/19/18 08:42 Free T4 1.14 ng/dL (0.78-2.19) 09/19/18 08:42 TSH 3rd Generation 4.38 mIU/L (0.46-4.68) 09/19/18 08:42 Venous Blood Potassium 3.5 mmol/L (3.6-5.2) L 09/18/18 05:40 Urine Color Yellow (YELLOW) 09/18/18 20:10 Urine Clarity Clear (Clear) 09/18/18 20:10 Urine pH 6.0 (5.0-8.0) 09/18/18 20:10 Ur Specific [place] 1.015 (1.003-1.030) 09/18/18 20:10 Urine Protein Negative mg/dL (NEGATIVE) 09/18/18 20:10 Urine Glucose (UA) Normal mg/dL (Normal) 09/18/18 20:10 Urine Ketones Trace mg/dL (NEGATIVE) 09/18/18 20:10 Urine Blood 2+ (NEGATIVE) H 09/18/18 20:10 Urine Nitrate Negative (NEGATIVE) 09/18/18 20:10 Urine Bilirubin Negative (NEGATIVE) 09/18/18 20:10 Urine Urobilinogen 2.0 mg/dL (0.2-1.0) 09/18/18 20:10 Ur Leukocyte Esterase Neg Garo/uL (Negative) 09/18/18 20:10 Urine WBC (Auto) < 1 /hpf (0-5) 09/18/18 20:10 Urine RBC (Auto) 14 /hpf (0-3) H 09/18/18 20:10 RPR Nonreactive (NONREACTIVE) 09/19/18 08:42 - Hospital Course Hospital Course: Initial HPI 73 y/o male who denies PMHx presents to the ED from EMS s/p fall at home. Patient said he was on the ground for about 12 hours before EMS was called and was sent to the hospital. This morning, he was going to his bedroom, tripped, tried to catch himself by holding a doorknob and fell. His feet hit the ground, but not his head. His right middle finger got bruised during the fall; he used his right hand to hold the doorknob. Patient denied LOC or hitting his head. Patient was on the ground for a long time because his brother at home cannot physically pick him up. While he was on the ground, his brother, who he lives with, brought him food. Since he was on the ground for a long time and cannot get up, he urinated on the floor because he really needed to go. Patient only complains of pain on both feet, but his feet have always been hurting. Patient endorses trouble ambulating because of foot pain. His shins have had chronic discoloration for a long time; patient does not recall for how long. Patient also endorses LBP since he is sedentary opposed to trauma. Denies fever, chills, sweats, nausea, vomiting, diarrhea, abdominal pain. Hospital course Patient was admitted status post mechanical fall likely contributed to by chronic lower leg weakness, also with questionable celulitis of the legs bilaterally. He was seen by podiatry for chronic venous stasis changes of the legs bilaterally, not requiring any procedural intervention. Based on our assessment, there were no signs of celulits as patient without fever or leukocytosis, and based on physical exam skin findings not consistent with celulitis. Patient went for echo for questionable history of CHF, and echo was not consistent with CHF. He was also found to have a mildly elevated CPK, which returned to near normal limits upon discharge Patient was found to be stable and was discharged to subacute rehab for strength, gait, and balance training. Imaging -Hip/Lumbar xray 09/18 - negative for acute fractures -CT head 09/18 - No acute intracranial hemorrhage. Minor chronic periventricular white matter ischemic changes. Moderate generalized volume loss. -CT angio chest 09/18 - Unremarkable CT pulmonary angiogram. No pulmonary embolus. Hepatomegaly. Nonobstructing calculus right renal pelvis. -CT R hand 09/20 - No demonstrated fracture or dislocation. Diffuse distal interphalangeal joint arthritic changes. Discharge Exam - Head Exam Head Exam: ATRAUMATIC, NORMOCEPHALIC - Eye Exam Eye Exam: EOMI, Normal appearance Pupil Exam: NORMAL ACCOMODATION - ENT Exam ENT Exam: Mucous Membranes Moist - Respiratory Exam Respiratory Exam: NORMAL BREATHING PATTERN, UNREMARKABLE - Cardiovascular Exam Cardiovascular Exam: REGULAR RHYTHM, +S1, +S2 - GI/Abdominal Exam GI & Abdominal Exam: Soft, Unremarkable. absent: Tenderness - Extremities Exam Additional comments: abnormal discoloration of b/l LE with dark pink color from below knee to above malleolus swelling noted in the same region mentioned above - Neurological Exam Neurological exam: Alert, CN II-XII Intact, Oriented x3 - Psychiatric Exam Psychiatric exam: Normal Affect, Normal Mood - Skin Skin Exam: Dry, Intact Discharge Plan - Discharge Medications Prescriptions: Multivitamin [Daily Multiple Vitamin] 1 each PO DAILY 30 Days tablet - Follow Up Plan Condition: STABLE Disposition: HOME/ ROUTINE Instructions: Syncope (Fainting) (DC), Preventing Falls, Cellulitis (Skin Infection), Adult (DC) Additional Instructions: Patient is cleared for discharge to [facility] per Dr. Catherine Schmidt Patient is to continue with Lac-hydrin lotion as prescribed by podiatry for chronic venous leg changes while at rehab. Please follow up with podiatry regarding further leg, foot, and ankle care. Patient should take a daily multivitamin, as he was found to be deficient of B12 which can cause neuropathy and contribute to falls Please make sure to follow up with your primary care doctor following rehab for continued medical management. Please return to ER if symptoms recur or worsen Referrals: Leon Vazquez DPM [Staff Provider] -
[2018-09-21 18:16] VITALS: BP 137/86
[2018-09-21 18:24] VITALS: PULSE 69; RESP 20; TEMP 97.7; O2SAT 100
--- NOTE | 2018-09-21 19:43 | CARD ---
APPROVED REPORT Date of service: 09/17/2018 EKG Measurement Heart [id number] <Conclusion> Normal sinus rhythm Possible Left atrial enlargement Borderline ECG
== END 2018-09-21 19:30 | DRG 312 ==
LOC: C.ER 18:45 → C.9E 23:57 → C.6T 09-18 07:28
PROVIDERS: ADMIT Family Medicine; ATTEND Family Medicine
DX: R55 Syncope and collapse (principal); I87.2 Venous insufficiency (chronic) (peripheral); W01.0XXA Fall on same level from slipping, tripping and stumbling without subsequent striking against object, initial encounter; M79.673 Pain in unspecified foot; R53.1 Weakness; E11.9 Type 2 diabetes mellitus without complications; N20.0 Calculus of kidney; Y92.009 Unspecified place in unspecified non-institutional (private) residence as the place of occurrence of the external cause; Z83.3 Family history of diabetes mellitus